=== PATIENT | male | born 1985 | race Caucasian/White ===

== ENCOUNTER 2023-07-24 01:30 | Emergency (ER) | payer SELFPAY ==
[~2023-07-24] VITALS: Ht 185.4 cm; Wt 100.0 kg
[2023-07-24 01:39] VITALS: BP 128/73; PULSE 82; RESP 16; TEMP 98; O2SAT 99
--- NOTE | 2023-07-24 01:47 | NUR ---
informed pt that a [employer] [facility] ticket is 90 bucks to [place]
== END 2023-07-24 01:57 | disposition home or self-care (01) ==
LOC: ER 01:32
DX: Z00.00 Encounter for general adult medical examination without abnormal findings (principal); E86.0 Dehydration
CPT/HCPCS: 99281